=== PATIENT | male | born 1965 | race African-American/Black ===

== ENCOUNTER 2017-02-18 20:30 | Emergency (ER) | payer MEDICAID ==
[~2017-02-18] VITALS: Ht 175.3 cm; Wt 79.4 kg
[2017-02-18 20:33] VITALS: BP 148/79
[2017-02-18] MEDS ORDERED: ACETAMINOPHEN 325 MG TABLET ONE (20:47)
[2017-02-18] MEDS ORDERED: ACETAMINOPHEN 325 MG TABLET PO ONE (21:00)
== END 2017-02-18 21:09 | disposition home or self-care (01) ==
LOC: ER 20:35
DX: R51 Headache (principal); I10 Essential (primary) hypertension; G43.909 Migraine, unspecified, not intractable, without status migrainosus; M19.90 Unspecified osteoarthritis, unspecified site; Y04.0XXA Assault by unarmed brawl or fight, initial encounter; Y92.89 Other specified places as the place of occurrence of the external cause; Y93.89 Activity, other specified; Y99.8 Other external cause status
CPT/HCPCS: 99283; A4606; Z7610

== ENCOUNTER 2017-02-19 09:08 | Inpatient (IN) | payer MEDICAID ==
[~2017-02-19] VITALS: Ht 175.3 cm; Wt 69.9 kg
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
[2017-02-19] MEDS ORDERED: IBUPROFEN 600 MG TABLET PO ONE ×2 (09:25→09:30)
[2017-02-19] MEDS ORDERED: AMLODIPINE BESYLATE 5 MG TABLET ONE (09:25)
[2017-02-19] MEDS ORDERED: ACETAMINOPHEN ES 500 MG TABLET ONE (09:25)
[2017-02-19] MEDS ORDERED: AMLODIPINE BESYLATE 5 MG TABLET PO ONE (09:30)
[2017-02-19] MEDS ORDERED: ACETAMINOPHEN ES 500 MG TABLET PO ONE (09:30)
[2017-02-19] MEDS ORDERED: IV NS 0.9% 1,000 ML BAG IV ONE (10:30)
[2017-02-19] MEDS ORDERED: IV SET PRIMARY PUMP SET 1 EA INFUS.SET MC ONE ×2 (10:30→16:04)
[2017-02-19] MEDS ORDERED: IV NS 0.9% 1,000 ML ONE (10:30)
--- NOTE | 2017-02-19 10:30 | NUR ---
lac #18 iv access. blood sample collected sent to lab
--- NOTE | 2017-02-19 10:36 | NUR ---
EKG IN PROGRESS
[2017-02-19 10:46] LABS: BASOPHILS % (AUTO) 0.6 % (0.0-2.0); EOSINOPHILS # (AUTO) 0.1 /CMM (0.0-0.7); EOSINOPHILS % (AUTO) 2.2 % (0.0-6.0); HEMATOCRIT 40 % (39-51); HEMOGLOBIN 13.2 g/dL (13.5-17.5); LYMPHOCYTES # (AUTO) 1.2 /CMM (0.8-4.8); LYMPHOCYTES % (AUTO) 18.2 % (20.0-44.0); MEAN CORPUSCULAR HEMOGLOBIN 28 PG (26.0-33.0); MEAN CORPUSCULAR HGB CONC 33 g/dl (31.0-36.0); MEAN CORPUSCULAR VOLUME 84 fL (80-96); MONOCYTES # (AUTO) 0.5 /CMM (0.1-1.30); NEUTROPHILS # (AUTO) 4.7 /CMM (1.8-8.9); PLATELET COUNT (AUTO) 374 /CMM (150-450); RDW COEFFICIENT OF VARIATION 13.7 (11.5-15.0); WHITE BLOOD COUNT (AUTO) 6.5 K/uL (4.3-11.0)
[2017-02-19 10:56] LABS: CALCIUM, SERUM 8.6 mg/dL (8.5-10.1); CARBON DIOXIDE 32 mmol/L (21-32); CHLORIDE 102 mmol/L (98-107); CREATININE 1.2 mg/dL (0.6-1.3); GLUCOSE 101 mg/dL (74-106); POTASSIUM 3.5 mmol/L (3.5-5.1); SODIUM SERUM 138 mmol/L (136-145); UREA NITROGEN, BLOOD 12 mg/dL (7-18)
[2017-02-19 11:06] LABS: INR 0.98 (0.87-1.13); PROTHROMBIN TIME 10.2 SECS (9.5-12.7); TROPONIN I < 0.017 ng/mL (0.00-0.056)
--- NOTE | 2017-02-19 11:35 | NUR ---
PAGED DR PARRY MAIL SORTER FOR PANEL
--- NOTE | 2017-02-19 11:36 | NUR ---
CALLED NURSING WEB PROJECT MANAGER FOR TELE BED
--- NOTE | 2017-02-19 11:37 | NUR ---
DR PARRY ON THE PHONE WITH DR LUNA
--- NOTE | 2017-02-19 11:44 | NUR ---
LEFT MESSAGE WITH [facility] FOR CONSULT
--- NOTE | 2017-02-19 11:44 | NUR ---
PT WILL GO TO TELE 107 NURSE IS BRET
[2017-02-19] MEDS ORDERED: hydrALAZINE HCL IV 20 MG VIAL ONE (11:48)
--- NOTE | 2017-02-19 11:50 | NUR ---
CALLED DR NUGENT FOR NEUROSURGERY CONSULT
--- NOTE | 2017-02-19 11:53 | NUR ---
REPORT GIVEN TO BRET. PT AWAITING TRANSFER TO FLOOR.
[2017-02-19 12:00] VITALS: BP 152/101
[2017-02-19] MEDS ORDERED: MAG HYDROX/AL HYDROX/SIMETH 30 ML UDC PO PRN (12:00)
[2017-02-19] MEDS ORDERED: hydrALAZINE HCL IV 20 MG VIAL IV ONE (12:00)
[2017-02-19] MEDS ORDERED: MAGNESIUM HYDROXIDE 30 ML UDC PO PRN (12:00)
[2017-02-19] MEDS ORDERED: Z GUARD REMEDY 2 OZ OINT TP PRN (12:00)
[2017-02-19] MEDS ORDERED: ACETAMINOPHEN 325 MG TABLET PO PRN (12:00)
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
[2017-02-19] MEDS: AMLODIPINE BESYLATE 5 MG TABLET PO SCH (13:45)
[2017-02-19 16:00] VITALS: BP 140/93
[2017-02-19] MEDS: IV NS 0.9% 1,000 ML IV PRN (16:09)
[2017-02-19] MEDS: HYDROCODONE/APAP 5/325MG 1 EACH TABLET PO PRN ×2 (18:11→21:58)
--- NOTE | 2017-02-19 19:00 | NUR ---
RN CLOSING NOTE ALL MD ORDERS CARRIED OUT. PATIENT KEPT CLEAN AND DRY. SAFETY PRECAUTIONS IN PLACE AT ALL TIMES. WILL GIVE REPORT TO PM RN FOR ABDIFATAH.
[2017-02-19 20:00] VITALS: BP 157/104
--- NOTE | 2017-02-19 20:00 | NUR ---
DIPTI RN NOTE PT IN BED VERY AGITATED AND RESTLESS UNABLE TO STAY STILL FOR B/P STATES "YOU ARE SQUEEZING MY ARM TO HARD, QUICKLY GET OUT OF MY ROOM AND LEAVE ME ALONE". ON TELE SR HR 85. C/O PAIN IN HEAD /. TRIED TO CALM THE PT DOWN. DAY SHIFT GAVE NORCO EARLIER AT 181. NO RELEIF AT THIS TIME. TYLENOL 650 MG PO GIVEN FOR HEADACHE PAIN. ALSO PAGED DR RIVERA FOR PAIN MANAGEMENT. IVF NS @ 75 ML/HR INFUSING WELL, NO S/S OF INFILTRATION NOTED. B/P IS HIGH DUE TO PT IS VERY RESTLESS AND DON'T WANT TO COOPERATE. SIDE RAILS UP X 2 AND CALL LIGHT WITHIN REACH. CONTINUE TO MONITOR HIM.
--- NOTE | 2017-02-19 20:10 | NUR ---
DIPTI RN NOTE TYLENOL 650 MG PO GIVEN FOR PAIN.
--- NOTE | 2017-02-19 20:30 | NUR ---
DIPTI RN NOTE PT CALM DOWN AND TRIED TO FALL ASLEEP. DR AMOR CALLED BACK AND GAVE NEW ORDER FOR THE PAIN MANAGEMENT. ORDER NOTED AND CARRIED OUT. CONTINUE TO MONITOR PT.
[2017-02-19] MEDS ORDERED: ZOLPIDEM TARTRATE 5 MG TABLET PO PRN (22:00)
--- NOTE | 2017-02-19 22:00 | NUR ---
DIPTI RN NOTE PT STATES "I NEED MORE TYLENOL FOR HEADACHE, PAIN IS 7/10". NORCO 1 TAB PO GIVEN. CONTINUE TO MONITOR HIM.
--- NOTE | 2017-02-19 23:00 | NUR ---
DIPTI RN NOTE PAIN SUBSIDED 10/14. PT SLEEPING ON AND OFF.
--- NOTE | 2017-02-19 23:30 | NUR ---
DIPTI RN NOTE PT C/O INSOMNIA FOR CRYING STATES "I MISS MY MOM, PLEASE CONTACT HER". PT ONLY GAVE THE ADDRESS BUT NO PHONE #. IVF INFUSING WELL, NO S/S OF INFILTRATION NOTED.
[2017-02-20] VITALS (11 sets, daily range): BP systolic 149–185; BP diastolic 84–107
--- NOTE | 2017-02-20 00:30 | NUR ---
DIPTI RN NOTE PT FALL ASLEEP, NO DISTRESS OR DISCOMFORT NOTED. IVF INFUSING WELL, NO S/S OF INFILTRATION NOTED.
[2017-02-20] MEDS ORDERED: MORPHINE SULFATE INJ 2 MG/ML DISP.SYRIN ONE (03:44)
[2017-02-20] MEDS: MORPHINE SULFATE INJ 2 MG/ML DISP.SYRIN IV PRN ×2 (03:49→11:22)
--- NOTE | 2017-02-20 03:52 | NUR ---
DIPTI RN NOTE PT WOKE UP AND C/O SEVERE PAIN IN HEAD 04/13, MORPHINE SULFATE 2 MG IVP GIVEN. CONTINUE TO MONITOR HIM. IVF INFUSING WELL, NO S/S OF INFILTRATION NOTED.
--- NOTE | 2017-02-20 04:20 | NUR ---
DIPTI RN NOTE PT FALL BACK TO ASLEEP, AROUSABLE. PAIN SUBSIDED 2/. IVF INFUSING WELL, NO S/S OF INFILTRATION NOTED.
--- NOTE | 2017-02-20 05:20 | NUR ---
DIPTI RN NOTE PT WOKE UP. WENT TO BATHROOM TO URINATE. CAME BACK AND VOMITED, FOOD PARTICALS NOTED. ZOFRAN 4 MG IVP GIVEN. ALSO NOTED BP WENT UP TO 177/ 98 HR 65 HYDRALAZINE 10 MG PO GIVEN. CONTINUE TO MONITOR HIM.
[2017-02-20] MEDS: ONDANSETRON HCL/PF 4 MG/2 ML VIAL IVP PRN ×2 (05:21→09:18)
[2017-02-20] MEDS: IV NS 0.9% 1,000 ML IV PRN ×2 (05:21→23:01)
[2017-02-20] MEDS: hydrALAZINE HCL 10 MG TABLET PO PRN ×2 (05:21→13:43)
--- NOTE | 2017-02-20 06:04 | NUR ---
DIPTI RN NOTE NAUSEA AND VOMITING SUBSIDED. ALSO B/P CAME DOWN TO 158/ 88. PT IN BED ASLEEP, EASILY AROUSABLE. IVF INFUSING WELL, NO S/S OF INFILTRATION NOTED.
--- NOTE | 2017-02-20 06:29 | NUR ---
DIPTI RN NOTE B/P CAME DOWN TO 158/88. PT IN BED ASLEEP, AROUSABLE. ON TELE SR 82. STATES "MY HEAD PAIN IS BETTER". IVF INFUSING WELL, NO S/S OF INFILTRATION NOTED. SIDE RAILS UP X 2 AND CALL LIGHT WITHIN REACH. WILL ENDORSE TO DAY SHIFT NURSE FOR CONTINUE TO CARE.
[2017-02-20 06:37] LABS: BASOPHILS % (AUTO) 0.2 % (0.0-2.0); CALCIUM, SERUM 8.8 mg/dL (8.5-10.1); CREATININE 0.7 mg/dL (0.6-1.3); EOSINOPHILS # (AUTO) 0.1 /CMM (0.0-0.7); EOSINOPHILS % (AUTO) 0.8 % (0.0-6.0); HEMATOCRIT 40 % (39-51); HEMOGLOBIN 13.4 g/dL (13.5-17.5); LYMPHOCYTES % (AUTO) 14.9 % (20.0-44.0); MAGNESIUM 1.7 mg/dL (1.8-2.4); MEAN CORPUSCULAR HEMOGLOBIN 29 PG (26.0-33.0); MEAN CORPUSCULAR HGB CONC 34 g/dl (31.0-36.0); MEAN CORPUSCULAR VOLUME 85 fL (80-96); MONOCYTES # (AUTO) 0.4 /CMM (0.1-1.30); MONOCYTES % (AUTO) 5.6 % (2.0-12.0); NEUTROPHILS # (AUTO) 5.2 /CMM (1.8-8.9); NEUTROPHILS % (AUTO) 78.5 % (43.0-81.0); PHOSPHORUS 2.5 mg/dL (2.5-4.9); PLATELET COUNT (AUTO) 349 /CMM (150-450); POTASSIUM 3.8 mmol/L (3.5-5.1); RDW COEFFICIENT OF VARIATION 14.3 (11.5-15.0); RED BLOOD CELL COUNT(AUTO) 4.69 MIL/uL (4.5-6.0); WHITE BLOOD COUNT (AUTO) 6.6 K/uL (4.3-11.0)
--- NOTE | 2017-02-20 07:30 | NUR ---
INITIAL NOTE PT IN BED RESTING, DROWSY BUT FOLLOWS COMMANDS. PERRLA, EQUAL EXTREMITY STRENGTH. I EXPLAINED TO HIM THE PLAN FOR CT TODAY FOR SUBD HEMATOMA MONITORING HE ACKNOWLEDGES. HE IS ABLE TO GET UP WITH MILD ASSISTANCE. C/O OF HEADACHE 05/14. WILL GIVE PRN AND ROUTINE AM MEDS.
[2017-02-20] MEDS ORDERED: SECONDARY IV SET 1 EA INFUS.SET MC ONE ×2 (09:12→11:22)
[2017-02-20] MEDS: LISINOPRIL (10MG) 10 MG TABLET PO SCH (09:17)
[2017-02-20] MEDS: LEVETIRACETAM (500MG) 500 MG in IV NS 0.9% 100 ML IV SCH ×2 (09:17→21:20)
[2017-02-20] MEDS: AMLODIPINE BESYLATE 5 MG TABLET PO SCH (09:19)
[2017-02-20] MEDS: PANTOPRAZOLE 40 MG TABLET.DR PO SCH (09:19)
[2017-02-20] MEDS: Magnesium 1GM/D5W 100ML PREMIX 100 ML IV SCH ×2 (11:26→13:08)
[2017-02-20] MEDS: HYDROCODONE/APAP 5/325MG 1 EACH TABLET PO PRN (13:43)
[2017-02-20] MEDS ORDERED: NAPROXEN 250 MG TABLET PO PRN (16:00)
--- NOTE | 2017-02-20 16:26 | NUR ---
DIPTI RN NOTE CALLED THE BROTHER (NAME IS '') [phone], PER PT'S REQUEST TO NOTIFY HIM THAT HE IS IN THE HOSPITAL. I ALSO ASKED THE BROTHER PER PHARMACY'S REQUEST TO ASK ABOUT THE PATIEN'TS HOME MEDICATIONS BECAUSE THE PT CANNOT RECALL THE DOSAGES OF HIS HOME MEDS. THE BROTHER COULD NOT PROVIDE ANY INFORMATION ABOUT THE PT'S HOME MEDS. PHARMACY NOTIFIED.
--- NOTE | 2017-02-20 20:00 | NUR ---
BAR STAFF NOTE PT IN BED ASLEEP, AROUSABLE. A/O X 3, NO SOB, NO DISTRESS OR DISCOMFORT NOTED. DENIES PAIN AT THIS TIME. ON TELE SR HR 87. IVF NS INFUSING AT 75 ML/HR, 0 ML RESIDUAL NOTED. SIDE RAILS UP X 2 AND CALL LIGHT WITHIN REACH. B/P 153/106. CONTINUE TO MONITOR HIM.
[2017-02-21] VITALS: BP 149/91
[2017-02-21] MEDS: HYDROCODONE/APAP 5/325MG 1 EACH TABLET PO PRN ×2 (01:33→11:11)
--- NOTE | 2017-02-21 01:33 | NUR ---
OIL AND GAS WELL TREATMENT OPERATOR NOTE PT WOKE UP C/O HEAD PAIN 03/13, NORCO 1 TAB PO GIVEN. IVF INFUSING WELL, NO S/S OF INFILTRATION NOTED. CONTINUE TO MONITOR HIM.
--- NOTE | 2017-02-21 02:33 | NUR ---
BAND SINGER NOTE PAIN SUBSIDED 2/, PT ASLEEP, AROUSABLE. IVF INFUSING WELL. CONTINUE TO MONITOR HIM.
[2017-02-21 04:00] VITALS: BP 159/109
[2017-02-21] MEDS: MORPHINE SULFATE INJ 2 MG/ML DISP.SYRIN IV PRN (04:09)
--- NOTE | 2017-02-21 04:09 | NUR ---
LEVERMAN NOTE PT WOKE UP C/O PAIN IN HEAD 06/13, MORPHINE SULFATE 2 MG IVP GIVEN BY NURSE WILLIS. CONTINUE TO MONITOR HIM.
--- NOTE | 2017-02-21 04:39 | NUR ---
CLIENT ACCOUNT ASSISTANT NOTE PAIN SUBSIDED 10/14. PT FALL ASLEEP, AROUSABLE. IVF INFUSING WELL, NO S/S OF INFILTRATION NOTED. CONTINUE TO MONITOR HIM.
--- NOTE | 2017-02-21 06:34 | NUR ---
NAVAL AIRCREWMAN TACTICAL HELICOPTER NOTE PT IN BED ASLEEP, AROUSABLE. NO DISTRESS OR DISCOMFORT NOTED. DENIES PAIN. IVF INFUSING WELL, NO S/S OF INFILTRATION NOTED. ON TELE SR 76. SIDE RAILS UP X 2 AND CALL LIGHT WITHIN REACH. WILL ENDORSE TO DAY SHIFT NURSE FOR CONTINUE TO CARE.
--- NOTE | 2017-02-21 07:00 | NUR ---
RN INITIAL NOTE RECEIVED REPORT FORM JODIE FORREST PM SHIFT FOR ABDIFATAH. PT A/0 X3 RESTING IN BED. TELE SR. IV LAC #18 NS RUNNING @ 75ML /HR. PT ON RA ON C/O SOB. ALL SAFETY MEASURES IN PLACE WILL CONTINUE TO MONITOR.
[2017-02-21 07:24] LABS: BASOPHILS % (AUTO) 0.4 % (0.0-2.0); EOSINOPHILS # (AUTO) 0.1 /CMM (0.0-0.7); EOSINOPHILS % (AUTO) 2.2 % (0.0-6.0); HEMATOCRIT 40 % (39-51); HEMOGLOBIN 13.6 g/dL (13.5-17.5); LYMPHOCYTES # (AUTO) 1.8 /CMM (0.8-4.8); LYMPHOCYTES % (AUTO) 28.6 % (20.0-44.0); MEAN CORPUSCULAR HEMOGLOBIN 29 PG (26.0-33.0); MEAN CORPUSCULAR HGB CONC 34 g/dl (31.0-36.0); MEAN CORPUSCULAR VOLUME 85 fL (80-96); MONOCYTES # (AUTO) 0.6 /CMM (0.1-1.30); MONOCYTES % (AUTO) 9.4 % (2.0-12.0); NEUTROPHILS # (AUTO) 3.7 /CMM (1.8-8.9); NEUTROPHILS % (AUTO) 59.4 % (43.0-81.0); PLATELET COUNT (AUTO) 361 /CMM (150-450); RDW COEFFICIENT OF VARIATION 14.2 (11.5-15.0); RED BLOOD CELL COUNT(AUTO) 4.73 MIL/uL (4.5-6.0); WHITE BLOOD COUNT (AUTO) 6.2 K/uL (4.3-11.0)
[2017-02-21 07:35] LABS: CREATININE 0.9 mg/dL (0.6-1.3); POTASSIUM 3.9 mmol/L (3.5-5.1)
[2017-02-21 08:00] VITALS: BP 165/112
[2017-02-21] MEDS: PANTOPRAZOLE 40 MG TABLET.DR PO SCH (08:07)
[2017-02-21] MEDS: LISINOPRIL (10MG) 10 MG TABLET PO SCH (08:07)
[2017-02-21] MEDS: AMLODIPINE BESYLATE 5 MG TABLET PO SCH (08:07)
--- NOTE | 2017-02-21 08:11 | NUR ---
RN NOTE CALLED PHARMACY SPOKE TO NICOLE. AWAITING SHELLY TO BE SENT FROM PHARMACY.
[2017-02-21] MEDS: LEVETIRACETAM (500MG) 500 MG in IV NS 0.9% 100 ML IV SCH (11:10)
[2017-02-21] MEDS ORDERED: LEVE500T9 PO (11:37)
[2017-02-21] MEDS ORDERED: HYDR-3326 PO (11:37)
[2017-02-21 12:00] VITALS: BP 149/100
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
--- NOTE | 2017-02-21 15:04 | NUR ---
ANABELLA received a call from [facility] MAHI Bennett informing SW that Dr. Harris will be discharging pt. today and not tomorrow. According to MAHI Bennett, pt's tactical response group officer Ms. Trejo was called and informed that pt. will be discharged today. Ms. Yeung's informed MAHI Bennett to call her back at 3:30Pm regarding placement.
--- NOTE | 2017-02-21 16:30 | NUR ---
MACHINE APPLICATOR CEMENTER NOTE PT DC TRANSPORTED VIA TAXI VOUCHER GIVEN. EVA WALKED PT OUT. PT DC TO [facility] IN [facility]. CALLED [phone]. [facility] RETOUCHER PHOTOENGRAVING [phone] CALLED AND CONFIRMED LOCATION AND INFORMATION. IV AND ID BAND REMOVED. BELONGING LIST SIGNED. ALL MEDICATION GIVEN AND DC INSTRUCTIONS GIVEN TO PT. EDUCATED ON IMPORTANCE OF F/U APPT 1-2 WK PT STATED HE HAD HIS ON PCP AND WILL F/U. ALL QUESTIONS ANSWERED. PT INSISTED ON TAKING ID BANDS WITH HIM.
--- NOTE | 2017-02-21 18:04 | NUR ---
RN NOTE UNABLE TO ENTER I AND O REMOVED FROM LIST DUE TO DC.
[2017-02-21] MEDS ORDERED: LEVETIRACETAM (250 MG) 250 MG TABLET PO SCH (21:00)
== END 2017-02-21 16:23 | disposition home or self-care (01) | DRG 55 ==
LOC: ER 09:10 → TELE1 11:54 → TELE-TD 12:03 → TELE1 02-20 20:23 → MEDSG1 02-21 13:27
PROVIDERS: ADMIT Internal Medicine; ATTEND Internal Medicine
DX: S06.5X0A Traumatic subdural hemorrhage without loss of consciousness, initial encounter (principal); I16.0 Hypertensive urgency; G40.909 Epilepsy, unspecified, not intractable, without status epilepticus; E78.5 Hyperlipidemia, unspecified; Z59.0 Homelessness; Y09 Assault by unspecified means; Y92.9 Unspecified place or not applicable; G44.89 Other headache syndrome
CPT/HCPCS: 36415; 70450-TC; 71010-TC; 80048-TC; 80061-TC; 83735-TC; 84100-TC; 84484-TC; 85025-TC; 85730-TC; 87081-TC; 97001-TC; A4606; J0360; J1953; J2270; J2405; J3475; J7030; Z7610